=== PATIENT | female | born 1990 | race Caucasian/White ===

== ENCOUNTER 2018-07-08 08:58 | Emergency (ER) | payer SELFPAY ==
--- OUTSIDE RECORDS SUMMARY | 2018-07-08 09:01 | XMS REPORT ---
:1990 [facility] [address] [place] [address] Care Team Providers Name Role Phone Unavailable Unavailable Unavailable Payers Payer Name Policy Type Policy Number Effective Date Expiration Date Problems This patient has no known problems. Allergies, Adverse Reactions, Alerts Allergy Allergy Status Severity Reaction(s) Onset Inactive Treating Comments Name Type Date Date Clinician Sulfa DA Active U 2017-12 (Sulfonamid -03 e 00:00:0 Antibiotics 0 ) morphine DA Active U 2017-12 00:00:0 0 Medications This patient has no known medications.
--- NOTE | 2018-07-08 10:04 | ER ---
Nurse's Notes [facility] Name: Corazon Hearn Age: 28 yrs Sex: Female : 1990 Arrival Date: 07/08/2018 Time: 09:00 Bed 12 Private MD: Diagnosis: Otitis media, unspecified, right ear Presentation: 07/08 09:23 Presenting complaint: Right ear pain 8/10 upon waking today. Transition of care: hb patient was not received from another setting of care. Onset of symptoms was July 08, 2018. Risk Assessment: Do you want to hurt yourself or someone else? Patient reports no desire to harm self or others. Initial Sepsis Screen: Does the patient meet any 2 criteria? No. Patient's initial sepsis screen is negative. Does the patient have a suspected source of infection? No. Patient's initial sepsis screen is negative. Care prior to arrival: None. 09:23 Method Of Arrival: Ambulatory 09:23 Acuity: LY 4 hb Triage Assessment: :25 General: Appears in no apparent distress. Behavior is calm, cooperative. Pain: Pain hb currently is 8 out of 10 on a pain scale. EENT: Reports pain in right ear. Neuro: Level of Consciousness is awake, alert, obeys commands, Oriented to person, place, time, situation. Cardiovascular: Capillary refill < 3 seconds Patient's skin is warm and dry. Respiratory: Airway is patent Respiratory effort is even, unlabored, Respiratory pattern is regular, symmetrical. 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 - Social history:: Smoking status: Patient/guardian denies using tobacco. - Ebola Screening: : No symptoms or risks identified at this time. Screenin:24 Abuse screen: Denies threats or abuse. Denies injuries from another. Nutritional hb screening: No deficits noted. Tuberculosis screening: No symptoms or risk factors identified. Fall Risk None identified. Assessment: 09:25 General: see triage assessment. hb Vital Signs: 09:24 BP 125 / 61; Pulse 62; Resp 16; Temp 98.4; Pulse Ox 100% on R/A; Pain 8/10; hb ED Course: 09:00 Patient arrived in ED. as 09:22 Emmanuel Hernandez PA is PHCP. cp 09:22 Emmanuel Santiago MD is Attending Physician. cp 09:24 Triage completed. hb 09:24 Arm band placed on. hb 09:25 Patient has correct armband on for positive identification. Call light in reach. hb 10:04 Jackie Sandhu, RN is Primary Nurse. hb 10:13 No provider procedures requiring assistance completed. Patient did not have IV access hb during this emergency room visit. Administered Medications: 10:00 Drug: Ibuprofen 800 mg Route: PO; hb 10:04 Follow up: Response: Medication administered at discharge. hb 10:00 Drug: HYDROcodone-acetaminophen 5 mg-325 mg 1 tabs Route: PO; hb 10:04 Follow up: Response: Medication administered at discharge. hb Outcome: 10:04 Discharge ordered by MD. cp 10:13 Discharged to home ambulatory, with family. hb 10:13 Condition: stable 10:13 Discharge instructions given to patient, family, Instructed on discharge instructions, follow up and referral plans. medication usage, Demonstrated understanding of instructions, follow-up care, medications, Prescriptions given X 3. 10:13 Patient left the ED. hb Signatures: Shanique Singh as Emmanuel Hernandez PA PA cp Jackie Sandhu, RN RN hb
--- NOTE | 2018-07-08 10:05 | EDPHYS ---
Physician Documentation [facility] Name: Corazon Hearn Age: 28 yrs Sex: Female : 1990 Arrival Date: 07/08/2018 Time: 09:00 Bed 12 Private MD: ED Physician Emmanuel Santiago HPI: 07/08 09:57 This 28 yrs old Female presents to ER via Ambulatory with complaints of Ear cp Pain. 09:57 The patient presents with pain, that is acute. The complaints affect the right ear. cp Onset: The symptoms/episode began/occurred yesterday. Associated signs and symptoms: Pertinent positives: sore throat, sinus trouble. Severity of symptoms: in the emergency department the symptoms are unchanged despite home interventions. 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 - Social history:: Smoking status: Patient/guardian denies using tobacco. - Ebola Screening: : No symptoms or risks identified at this time. ROS: 09:58 Eyes: Negative for injury, pain, redness, and discharge. cp 09:58 Constitutional: Negative for body aches, chills, fever, poor PO intake. 09:58 ENT: Positive for ear pain, sinus congestion, sore throat. 09:58 Respiratory: Negative for cough, wheezing. 09:58 Abdomen/GI: Negative for abdominal pain, nausea, vomiting, and diarrhea. 09:58 Skin: Negative for cellulitis, rash. 09:58 Neuro: Negative for altered mental status, headache, weakness. 09:58 All other systems are negative. Exam: 10:00 Head/Face: Normocephalic, atraumatic. cp 10:00 Constitutional: The patient appears in no acute distress, alert, awake, non-toxic, well developed, well nourished, uncomfortable. 10:00 Eyes: Periorbital structures: appear normal, Conjunctiva: normal, no exudate, no injection, Lids and lashes: appear normal, bilaterally. 10:00 ENT: External ear(s): are unremarkable, Ear canal(s): are normal, clear, TM's: erythema, that is mild, on the right, Examination of the other ear shows no obvious abnormality, Nose: nasal drainage, that is clear, Mouth: Lips: moist, Oral mucosa: moist, Posterior pharynx: Airway: no evidence of obstruction, patent, Tonsils: no enlargement, no exudate, erythema, that is mild, exudate, is not appreciated, Voice: is normal. 10:00 Neck: Lymph nodes: lymphadenopathy is appreciated, posterior cervical nodes. 10:00 Chest/axilla: Inspection: normal. 10:00 Cardiovascular: Rate: normal. 10:00 Respiratory: the patient does not display signs of respiratory distress, Respirations: normal, no use of accessory muscles, no retractions, no splinting, no tachypnea. 10:00 Skin: cellulitis, is not appreciated, no rash present. Vital Signs: 09:24 BP 125 / 61; Pulse 62; Resp 16; Temp 98.4; Pulse Ox 100% on R/A; Pain 8/10; hb MDM: 09:23 Patient medically screened. cp 10:00 Differential diagnosis: otitis media, otitis externa, ruptured TM, cerumen impaction, cp barotrauma . 10:04 Data reviewed: vital signs, nurses notes, and as a result, I will discharge patient. cp 10:04 Counseling: I had a detailed discussion with the patient and/or guardian regarding: the cp historical points, exam findings, and any diagnostic results supporting the discharge/admit diagnosis, to return to the emergency department if symptoms worsen or persist or if there are any questions or concerns that arise at home. Response to treatment: the patient's symptoms have markedly improved after treatment, and as a result, I will discharge patient. Administered Medications: 10:00 Drug: Ibuprofen 800 mg Route: PO; hb 10:04 Follow up: Response: Medication administered at discharge. hb 10:00 Drug: HYDROcodone-acetaminophen 5 mg-325 mg 1 tabs Route: PO; hb 10:04 Follow up: Response: Medication administered at discharge. hb Disposition: 07/09 08:04 Co-signature as Attending Physician, Emmanuel Santiago MD I agree with the assessment and juma plan of care. Disposition: 07/08/18 10:04 Discharged to Home. Impression: Otitis media, unspecified, right ear. - Condition is Stable. - Discharge Instructions: Otitis Media, Adult. - Prescriptions for Amoxicillin 875 mg Oral Tablet - take 1 tablet by ORAL route every 12 hours for 10 days; 20 tablet. Ibuprofen 800 mg Oral Tablet - take 1 tablet by ORAL route every 8 hours As needed take with food; 30 tablet. Tylenol- Codeine #3 300-30 mg Oral Tablet - take 2 tablets by ORAL route every 8 hours As needed; 10 tablet. - Medication Reconciliation Form, Thank You Letter, Antibiotic Education, Prescription Opioid Use, Work release form form. - Follow up: Private Physician; When: 2 - 3 days; Reason: Worsening of condition. - Problem is new. - Symptoms have improved. Signatures: Emmanuel Santiago MD MD cha Page, Corey, PA PA cp Jackie Sandhu RN RN Corrections: (The following items were deleted from the chart) 07/08 10:13 10:04 07/08/2018 10:04 Discharged to Home. Impression: Otitis media, unspecified, right hb ear. Condition is Stable. Forms are Medication Reconciliation Form, Thank You Letter, Antibiotic Education, Prescription Opioid Use. Follow up: Private Physician; When: 2 - 3 days; Reason: Worsening of condition. Problem is new. Symptoms have improved. cp
[2018-07-08] MEDS ORDERED: IBUPROFEN 400 MG TAB ONE ×2 (10:10→10:13)
[2018-07-08] MEDS ORDERED: HYDROCODONE/APAP 5/325 MG TAB ONE (10:10)
== END 2018-07-08 10:13 | disposition home or self-care (01) ==
LOC: ER 08:58
DX: H66.91 Otitis media, unspecified, right ear (principal); Z88.2 Allergy status to sulfonamides
CPT/HCPCS: 99283